=== PATIENT | female | born 1980 | race Caucasian/White ===

== ENCOUNTER 2021-08-12 10:12 | Emergency (ER) | payer OTHER ==
[2021-08-12 10:20] VITALS: TEMP 97.8; BMI 28.3
[2021-08-12 12:14] LABS: BASO % 0.6 % (0-2.0); EOS % 2.1 % (0-4.5); HEMOGLOBIN 13.8 GM/dL (10.7-15.3); LYMPH % 22.7 % (8-40); MCH 32.1 pg (25.7-33.7); MCHC 34.4 g/dl (32.0-36.0); MEAN CELL VOLUME 93.3 fl (80-96); MEAN PLT VOLUME 8.7 fl (7.5-11.1); MONO % 4.7 % (3.8-10.2); NEUT % 69.9 % (42.8-82.8); PLATELET COUNT 273 10^3/uL (134-434); RBC 4.29 M/mm3 (3.60-5.2); RDW 12.7 % (11.6-15.6); WHITE BLOOD COUNT 10.5 K/mm3 (4.0-10.0)
[2021-08-12 12:32] LABS: EPI CELLS >36 /uL (0-25.1); HYALINE CASTS 4 /uL (0-3.1); PH,URINE 6.5 (5.0-8.0); URINE APPEARANCE CLEAR; URINE BACTERIA 2776 /uL (0-1359); URINE BILIRUBIN NEGATIVE (NEGATIVE); URINE COLOR YELLOW; URINE GLUCOSE (UA) NEGATIVE (NEGATIVE); URINE KETONE NEGATIVE (NEGATIVE); URINE LEUK ESTERASE TRACE (NEGATIVE); URINE NITRITE NEGATIVE (NEGATIVE); URINE PROTEIN NEGATIVE (NEGATIVE); URINE RBC 11 /uL (0-23.9); URINE UROBILINOGEN 0.2 mg/dL (0.2-1.0); URINE WBC 51 /uL (0-25.8)
[2021-08-12 13:27] LABS: ALBUMIN 3.8 g/dl (3.4-5.0); BILIRUBIN,TOTAL 0.4 mg/dL (0.2-1); BLOOD UREA NITROGEN 11.6 mg/dL (7-18); CALCIUM 8.9 mg/dL (8.5-10.1); CREATININE 0.7 mg/dL (0.55-1.3); TOT PROT 7.6 g/dl (6.4-8.2)
[2021-08-12 14:16] LABS: PH,URINE 6.5 (5.0-8.0); URINE APPEARANCE CLEAR; URINE BILIRUBIN NEGATIVE (NEGATIVE); URINE COLOR YELLOW; URINE GLUCOSE (UA) NEGATIVE (NEGATIVE); URINE KETONE 1+ (NEGATIVE); URINE LEUK ESTERASE NEGATIVE (NEGATIVE); URINE NITRITE NEGATIVE (NEGATIVE); URINE PROTEIN NEGATIVE (NEGATIVE); URINE UROBILINOGEN 0.2 mg/dL (0.2-1.0)
[2021-08-12 17:01] VITALS: BP 118/78; PULSE 87
== END 2021-08-12 17:01 | disposition home or self-care (01) ==
LOC: JER 10:12
DX: O26.891 Other specified pregnancy related conditions, first trimester (principal); R10.9 Unspecified abdominal pain; Z3A.01 Less than 8 weeks gestation of pregnancy
CPT/HCPCS: 36415; 76801-TC; 80053; 81003; 84702; 85025; 86850; 86900; 86901; 87086; 99284-25

== ENCOUNTER 2022-02-26 17:12 | Emergency (ER) | payer OTHER ==
[2022-02-26 17:26] VITALS: BMI 29.5
[2022-02-26 18:52] LABS: URINE APPEARANCE CLEAR; URINE BILIRUBIN NEGATIVE (NEGATIVE); URINE COLOR YELLOW; URINE GLUCOSE (UA) NEGATIVE (NEGATIVE); URINE KETONE TRACE (NEGATIVE); URINE LEUK ESTERASE NEGATIVE (NEGATIVE); URINE NITRITE NEGATIVE (NEGATIVE); URINE PROTEIN NEGATIVE (NEGATIVE); URINE UROBILINOGEN 0.2 mg/dL (0.2-1.0)
[2022-02-26 19:18] LABS: CALCIUM 8.9 mg/dL (8.5-10.1)
[2022-02-26 19:19] LABS: ALBUMIN 2.7 g/dl (3.4-5.0); BLOOD UREA NITROGEN 8.5 mg/dL (7-18)
[2022-02-26 19:22] LABS: CREATININE 0.5 mg/dL (0.55-1.3)
[2022-02-26 19:24] LABS: BILIRUBIN,TOTAL 0.3 mg/dL (0.2-1); TOT PROT 6.1 g/dl (6.4-8.2)
[2022-02-26 19:29] LABS: BASO % 0.4 % (0-2.0); EOS % 3.2 % (0-4.5); HEMATOCRIT 35.7 % (32.4-45.2); HEMOGLOBIN 11.9 GM/dL (10.7-15.3); LYMPH % 15.7 % (8-40); MCH 31.3 pg (25.7-33.7); MCHC 33.3 g/dl (32.0-36.0); MEAN PLT VOLUME 8.2 fl (7.5-11.1); MONO % 5.8 % (3.8-10.2); NEUT % 74.9 % (42.8-82.8); PLATELET COUNT 263 10^3/uL (134-434); RDW 14.3 % (11.6-15.6)
[2022-02-26] MEDS ORDERED: ACETAMINOPHEN 1000 MG/100 ML BAG IVPB ONE (19:42)
[2022-02-26] MEDS ORDERED: SODIUM CHLORIDE 0.9% 500 ML INFUS.BAG IV ONE (19:42)
[2022-02-26] MEDS ORDERED: METOCLOPRAMIDE HCL INJECTION 10 MG/2 ML VIAL IVPUSH ONE (19:43)
[2022-02-26] MEDS ORDERED: METOCLOPRAMIDE HCL INJECTION 10 MG/2 ML VIAL ONE (19:57)
[2022-02-26] MEDS ORDERED: ACETAMINOPHEN INJECTION 100 ML IVPB ONE (19:57)
[2022-02-26 23:12] VITALS: BP 104/67; PULSE 83; TEMP 98
== END 2022-02-26 23:45 | disposition home or self-care (01) ==
LOC: JER 17:12
PROC: 3E033GC Introduction of Other Therapeutic Substance into Peripheral Vein, Percutaneous Approach (ICD-10-PCS; principal; 2022-02-26)
DX: O26.893 Other specified pregnancy related conditions, third trimester (principal); R51.9 Headache, unspecified; Z3A.37 37 weeks gestation of pregnancy
CPT/HCPCS: 36415; 80053; 81003; 85025; 87086; 96374; 96375; 99284-25

== ENCOUNTER 2022-03-15 06:35 | Inpatient (IN) | payer OTHER ==
[2022-03-15] MEDS ORDERED: CITRIC ACID/SODIUM CITRATE 30 ML UNIT-DOSE CUP PO ONE (06:48)
[2022-03-15] MEDS: ELECTROLYTE-148 SOLN 1,000 ML IV SCH ×3 (07:00→18:45)
[2022-03-15 08:04] VITALS: BMI 29.2
[2022-03-15] MEDS ORDERED: morphine SULFATE/PF 1 MG/2 ML (2cc Syringe - QUVA) ONE (08:05)
[2022-03-15] MEDS ORDERED: morphine SULFATE/PF 1 MG/2 ML (2cc Syringe - QUVA) EP ONE ×2 (08:24→13:32)
[2022-03-15 08:28] LABS: CALCIUM 8.1 mg/dL (8.5-10.1)
[2022-03-15 08:29] LABS: ALBUMIN 2.5 g/dl (3.4-5.0); BLOOD UREA NITROGEN 8.4 mg/dL (7-18)
[2022-03-15 08:32] LABS: CREATININE 0.5 mg/dL (0.55-1.3)
[2022-03-15 08:34] LABS: BILIRUBIN,TOTAL 0.4 mg/dL (0.2-1); TOT PROT 5.6 g/dl (6.4-8.2)
[2022-03-15] MEDS ORDERED: KETOROLAC TROMETHAMINE 30 MG/1 ML VIAL ONE (09:02)
[2022-03-15] MEDS ORDERED: ONDANSETRON 4 MG/2 ML VIAL ONE (09:02)
[2022-03-15] MEDS ORDERED: PHENYLEPHRINE HCL 10 MG/1 ML SINGLE DOSE VIAL ONE (09:02)
[2022-03-15] MEDS ORDERED: ceFAZolin SODIUM 1 GM VIAL ONE (09:02)
[2022-03-15] MEDS ORDERED: OXYTOCIN 10 UNITS/ML VIAL ONE ×2 (09:05→12:24)
[2022-03-15] MEDS ORDERED: BENZOCAINE 28 GM HEMORRHOIDAL OINTMENT TP PRN ×2 (09:30→13:32)
[2022-03-15] MEDS ORDERED: WITCH HAZEL 50% (TUCKS) 40 PAD/JAR PAD TP PRN ×2 (09:30→13:32)
[2022-03-15] MEDS ORDERED: IBUPROFEN 800 MG/8 ML IJ IVPB PRN ×2 (09:30→13:32)
[2022-03-15] MEDS ORDERED: ACETAMINOPHEN 325 MG TABLET (FP) PO PRN ×2 (09:30→13:32)
[2022-03-15] MEDS ORDERED: OXYTOCIN 20 UNITS in 0.9% NS 20 UNIT/1,000 ML INFUS.BAG IV SCH ×2 (09:30→13:32)
[2022-03-15] MEDS ORDERED: METHYLERGONOVINE MALEATE 0.2 MG/1 ML AMP IM PRN ×2 (09:30→13:32)
[2022-03-15] MEDS ORDERED: IBUPROFEN 600 MG TABLET (FP) PO PRN ×2 (09:30→13:32)
[2022-03-15] MEDS ORDERED: SIMETHICONE 80 MG TAB.CHEW (FP) PO PRN ×2 (09:30→13:32)
[2022-03-15] MEDS ORDERED: FERROUS SO4 325 MG TABLET (FP) PO SCH (10:00)
[2022-03-15] MEDS ORDERED: PRENATAL VITAMINS W/ FOLIC ACID TABLET (FP) PO SCH (10:00)
[2022-03-15] MEDS ORDERED: OXYTOCIN 20 UNITS in 0.9% NS 20 UNIT/1,000 ML INFUS.BAG IV ONE (10:58)
[2022-03-15] MEDS ORDERED: ROCURONIUM BROMIDE 50 MG/5 ML SYRINGE ONE (11:06)
[2022-03-15] MEDS ORDERED: PROPOFOL 20 ML ONE (11:06)
[2022-03-15] MEDS ORDERED: MIDAZOLAM HCL 2 MG/2 ML SINGLE DOSE VIAL ONE ×3 (11:06→15:36)
[2022-03-15] MEDS ORDERED: LIDOCAINE HCL/PF 2% SDV 5ML VIAL ONE (11:08)
[2022-03-15 11:32] LABS: HEMATOCRIT 27.5 % (32.4-45.2); HEMOGLOBIN 9.3 GM/dL (10.7-15.3); MCH 32.6 pg (25.7-33.7); MCHC 33.9 g/dl (32.0-36.0); MEAN CELL VOLUME 96.1 fl (80-96); MEAN PLT VOLUME 8.3 fl (7.5-11.1); PLATELET COUNT 226 10^3/uL (134-434); RBC 2.87 M/mm3 (3.60-5.2); RDW 14.6 % (11.6-15.6); WHITE BLOOD COUNT 9.9 K/mm3 (4.0-10.0)
[2022-03-15] MEDS ORDERED: ceFAZolin SODIUM 1 GM VIAL IVPB ONE (11:40)
[2022-03-15] MEDS ORDERED: MISOPROSTOL 200 MCG TABLET ONE ×2 (11:45→12:03)
[2022-03-15] MEDS ORDERED: METHYLERGONOVINE MALEATE 0.2 MG/1 ML AMP IM ONE (12:03)
[2022-03-15] MEDS ORDERED: NEOSTIGMINE METHYLSULFATE 0.5 MG/ML - 10 ML MDV ONE ×2 (12:23)
[2022-03-15] MEDS ORDERED: DEXAMETHASONE SOD PHOSPHATE 4 MG/1 ML VIAL ONE (12:24)
[2022-03-15] MEDS ORDERED: ONDANSETRON 4 MG/2 ML VIAL IVPUSH PRN ×5 (13:05→18:08)
[2022-03-15] MEDS ORDERED: ACETAMINOPHEN 1000 MG/100 ML BAG IVPB ONE ×2 (13:09→13:32)
[2022-03-15] MEDS ORDERED: ACETAMINOPHEN INJECTION 100 ML IVPB ONE (13:39)
[2022-03-15] MEDS ORDERED: FENTANYL CITRATE/PF 50 MCG/ML VIAL ONE ×3 (15:37→17:41)
[2022-03-15] MEDS ORDERED: LACTATED RINGERS SOLUTION 1,000 ML IV SCH (18:15)
[2022-03-15] MEDS ORDERED: HYDROmorphone *PCA* 10MG/50ML DISP.SYRIN ONE (18:36)
[2022-03-15] MEDS: HYDROmorphone *PCA* 10MG/50ML DISP.SYRIN PCA SCH ×2 (18:41→18:45)
[2022-03-15] MEDS ORDERED: oxyCODONE HCL 5 MG TABLET PO PRN ×2 (21:30)
[2022-03-15] MEDS ORDERED: HYDROCORTISONE SOD SUCCINATE 100 MG/2 ML VIAL IVPB ONE (21:50)
[2022-03-15] MEDS: FERROUS SO4 325 MG TABLET (FP) PO SCH (22:41)
[2022-03-15 23:01] LABS: URINE COLOR ORANGE
[2022-03-15 23:02] LABS: PH,URINE 5.5 (5.0-8.0); URINE APPEARANCE CLEAR; URINE GLUCOSE (UA) NEGATIVE (NEGATIVE); URINE NITRITE NEGATIVE (NEGATIVE)
[2022-03-15 23:05] LABS: URINE BILIRUBIN 1+ (NEGATIVE); URINE KETONE 1+ (NEGATIVE); URINE LEUK ESTERASE TRACE (NEGATIVE); URINE PROTEIN 2+ (NEGATIVE)
[2022-03-16] MEDS: ELECTROLYTE-148 SOLN 1,000 ML IV SCH ×2 (03:42→11:49)
[2022-03-16 04:13] LABS: BASO % 0.2 % (0-2.0); EOS % 0.1 % (0-4.5); HEMATOCRIT 23.1 % (32.4-45.2); HEMOGLOBIN 7.8 GM/dL (10.7-15.3); LYMPH % 13.8 % (8-40); MCH 30.9 pg (25.7-33.7); MCHC 33.7 g/dl (32.0-36.0); MEAN CELL VOLUME 91.6 fl (80-96); MEAN PLT VOLUME 7.6 fl (7.5-11.1); MONO % 7.7 % (3.8-10.2); NEUT % 78.2 % (42.8-82.8); PLATELET COUNT 144 10^3/uL (134-434); RBC 2.52 M/mm3 (3.60-5.2); RDW 15.2 % (11.6-15.6); WHITE BLOOD COUNT 16.2 K/mm3 (4.0-10.0)
[2022-03-16 04:34] LABS: CALCIUM 7.6 mg/dL (8.5-10.1)
[2022-03-16 04:35] LABS: BLOOD UREA NITROGEN 8.8 mg/dL (7-18)
[2022-03-16 04:38] LABS: CREATININE 0.5 mg/dL (0.55-1.3)
[2022-03-16 04:40] LABS: BILIRUBIN,TOTAL 0.4 mg/dL (0.2-1); TOT PROT 4.1 g/dl (6.4-8.2)
[2022-03-16 05:04] LABS: ARTERIAL BLD GAS O2 SATURATION 98.2 % (95-98); ARTERIAL BLOOD GAS BASE EXCESS -2.6 mmol/L (-2-2); ARTERIAL BLOOD GAS PO2 112.9 mmHg (80-100)
[2022-03-16 05:11] LABS: ALLENS TEST POSITIVE
[2022-03-16 05:12] LABS: ALBUMIN 1.7 g/dl (3.4-5.0)
[2022-03-16 06:06] LABS: ACTIVATED PTT 24.8 SECONDS (25.2-36.5); INR 1.01 (0.83-1.09)
[2022-03-16] MEDS ORDERED: FUROSEMIDE 40 MG/4 ML INJECTABLE VIAL IVPUSH ONE ×2 (07:00→08:30)
[2022-03-16] MEDS ORDERED: BISACODYL 10 MG SUPP.RECT RC PRN ×3 (09:30→18:55)
[2022-03-16] MEDS ORDERED: PRENATAL VITAMINS W/ FOLIC ACID TABLET (FP) PO SCH (10:00)
[2022-03-16] MEDS ORDERED: MUPIROCIN 2% TOPICAL OINTMENT FOR DECOLONIZATION NS SCH ×2 (10:00→22:00)
[2022-03-16 10:02] LABS: MAGNESIUM 1.9 mg/dL (1.8-2.4)
[2022-03-16] MEDS: FERROUS SO4 325 MG TABLET (FP) PO SCH ×2 (10:04→17:54)
[2022-03-16 10:06] LABS: PHOSPHOROUS 3.2 mg/dL (2.5-4.9)
[2022-03-16 10:15] LABS: N-TERMINAL BNP 36.1 pg/ml (5-125)
[2022-03-16 10:21] LABS: BASO % 0.1 % (0-2.0); HEMATOCRIT 21.3 % (32.4-45.2); HEMOGLOBIN 7.3 GM/dL (10.7-15.3); LYMPH % 6.7 % (8-40); MCH 31.1 pg (25.7-33.7); MCHC 34.4 g/dl (32.0-36.0); MEAN CELL VOLUME 90.4 fl (80-96); MEAN PLT VOLUME 7.6 fl (7.5-11.1); MONO % 4.8 % (3.8-10.2); NEUT % 88.4 % (42.8-82.8); PLATELET COUNT 137 10^3/uL (134-434); RBC 2.35 M/mm3 (3.60-5.2); WHITE BLOOD COUNT 17.6 K/mm3 (4.0-10.0)
[2022-03-16] MEDS ORDERED: METHYLERGONOVINE MALEATE 0.2 MG/1 ML AMP IM PRN (18:55)
[2022-03-16] MEDS ORDERED: WITCH HAZEL 50% (TUCKS) 40 PAD/JAR PAD TP PRN (18:55)
[2022-03-16] MEDS ORDERED: BENZOCAINE 28 GM HEMORRHOIDAL OINTMENT TP PRN (18:55)
[2022-03-16] MEDS ORDERED: HYDROmorphone *PCA* 10MG/50ML DISP.SYRIN PCA SCH (18:55)
[2022-03-16] MEDS: oxyCODONE HCL 5 MG TABLET PO PRN (21:21)
[2022-03-16] MEDS: SIMETHICONE 80 MG TAB.CHEW (FP) PO PRN (21:21)
[2022-03-16] MEDS ORDERED: CHLORHEXIDINE GLUCONATE 4% CLEANSER FOR DECOLONIZATION TP SCH (22:00)
[2022-03-17] MEDS: SIMETHICONE 80 MG TAB.CHEW (FP) PO PRN ×2 (03:04→09:23)
[2022-03-17] MEDS: FERROUS SO4 325 MG TABLET (FP) PO SCH ×2 (09:22→17:37)
[2022-03-17] MEDS: oxyCODONE HCL 5 MG TABLET PO PRN ×3 (09:23→22:13)
[2022-03-17] MEDS: PRENATAL VITAMINS W/ FOLIC ACID TABLET (FP) PO SCH (09:23)
[2022-03-17] MEDS ORDERED: DIPHTH,PERTUSS(ACELL),TET 0.5 ML DISP.SYRIN IM ONE (10:00)
[2022-03-17 10:11] LABS: HEMATOCRIT 19.6 % (32.4-45.2); MCH 31.3 pg (25.7-33.7); MCHC 33.9 g/dl (32.0-36.0); MEAN CELL VOLUME 92.3 fl (80-96); MEAN PLT VOLUME 7.6 fl (7.5-11.1); PLATELET COUNT 149 10^3/uL (134-434); RBC 2.13 M/mm3 (3.60-5.2); RDW 15.3 % (11.6-15.6)
[2022-03-17 10:17] LABS: HEMOGLOBIN 6.6 GM/dL (10.7-15.3)
[2022-03-17 10:30] LABS: BLOOD UREA NITROGEN 9.5 mg/dL (7-18); CALCIUM 7.4 mg/dL (8.5-10.1)
[2022-03-17 10:34] LABS: CREATININE 0.5 mg/dL (0.55-1.3)
[2022-03-17 14:41] LABS: BASO % 0.2 % (0-2.0); EOS % 1.2 % (0-4.5); LYMPH % 10.3 % (8-40); MCH 30.7 pg (25.7-33.7); MCHC 33.4 g/dl (32.0-36.0); MEAN PLT VOLUME 7.8 fl (7.5-11.1); NEUT % 81.3 % (42.8-82.8); PLATELET COUNT 150 10^3/uL (134-434); RBC 2.07 M/mm3 (3.60-5.2); RDW 15.5 % (11.6-15.6); WHITE BLOOD COUNT 16.7 K/mm3 (4.0-10.0)
[2022-03-17 14:46] LABS: HEMOGLOBIN 6.4 GM/dL (10.7-15.3)
[2022-03-17] MEDS ORDERED: IRON SUCROSE INJECTION 200 MG in SODIUM CHLORIDE 90 ML IVPB ONE (16:15)
[2022-03-17] MEDS: IBUPROFEN 600 MG TABLET (FP) PO PRN (21:19)
[2022-03-18] MEDS: oxyCODONE HCL 5 MG TABLET PO PRN ×4 (06:02→23:07)
[2022-03-18 07:27] LABS: HEMATOCRIT 24.4 % (32.4-45.2); HEMOGLOBIN 8.4 GM/dL (10.7-15.3); MCH 31.8 pg (25.7-33.7); MCHC 34.4 g/dl (32.0-36.0); MEAN CELL VOLUME 92.4 fl (80-96); MEAN PLT VOLUME 7.9 fl (7.5-11.1); PLATELET COUNT 183 10^3/uL (134-434); RBC 2.64 M/mm3 (3.60-5.2); RDW 14.9 % (11.6-15.6); WHITE BLOOD COUNT 16.9 K/mm3 (4.0-10.0)
[2022-03-18] MEDS: FERROUS SO4 325 MG TABLET (FP) PO SCH ×2 (08:06→18:42)
[2022-03-18] MEDS: PRENATAL VITAMINS W/ FOLIC ACID TABLET (FP) PO SCH (10:02)
[2022-03-18 10:42] LABS: ANISOCYTOSIS 2+; MACROCYTOSIS 0; OVALOCYTE 2+
[2022-03-18] MEDS: SIMETHICONE 80 MG TAB.CHEW (FP) PO PRN ×2 (18:42→23:07)
[2022-03-18] MEDS: HYDROmorphone *PCA* 10MG/50ML DISP.SYRIN PCA SCH (19:46)
[2022-03-18] MEDS: IBUPROFEN 600 MG TABLET (FP) PO PRN (21:57)
[2022-03-19] MEDS: oxyCODONE HCL 5 MG TABLET PO PRN ×2 (06:09→15:20)
[2022-03-19] MEDS: SIMETHICONE 80 MG TAB.CHEW (FP) PO PRN ×3 (06:09→23:57)
[2022-03-19] MEDS: FERROUS SO4 325 MG TABLET (FP) PO SCH ×2 (07:22→16:49)
[2022-03-19] MEDS: IBUPROFEN 600 MG TABLET (FP) PO PRN ×3 (07:22→23:57)
[2022-03-19 08:30] LABS: HEMATOCRIT 29.3 % (32.4-45.2); MCH 31.6 pg (25.7-33.7); MEAN CELL VOLUME 92.9 fl (80-96); MEAN PLT VOLUME 7.7 fl (7.5-11.1); PLATELET COUNT 240 10^3/uL (134-434); RBC 3.16 M/mm3 (3.60-5.2); RDW 14.6 % (11.6-15.6); WHITE BLOOD COUNT 14.7 K/mm3 (4.0-10.0)
[2022-03-19] MEDS: PRENATAL VITAMINS W/ FOLIC ACID TABLET (FP) PO SCH (09:57)
[2022-03-19 12:12] LABS: ANISOCYTOSIS 2+; MACROCYTOSIS 0; OVALOCYTE 2+
[2022-03-19] MEDS ORDERED: diphenhydrAMINE HCL 25 MG CAPSULE (FP) PO ONE (14:45)
[2022-03-20] MEDS: SIMETHICONE 80 MG TAB.CHEW (FP) PO PRN ×2 (06:18→10:02)
[2022-03-20] MEDS: IBUPROFEN 600 MG TABLET (FP) PO PRN (06:19)
[2022-03-20 07:27] LABS: HEMATOCRIT 27.6 % (32.4-45.2); HEMOGLOBIN 9.5 GM/dL (10.7-15.3); MCH 31.7 pg (25.7-33.7); MCHC 34.4 g/dl (32.0-36.0); MEAN CELL VOLUME 92.4 fl (80-96); MEAN PLT VOLUME 7.6 fl (7.5-11.1); PLATELET COUNT 273 10^3/uL (134-434); RBC 2.99 M/mm3 (3.60-5.2); RDW 14.8 % (11.6-15.6)
[2022-03-20] MEDS ORDERED: ACETAMINOPHEN 325 MG TABLET (FP) PO PRN (08:26)
[2022-03-20] MEDS: FERROUS SO4 325 MG TABLET (FP) PO SCH (08:35)
[2022-03-20] MEDS: PRENATAL VITAMINS W/ FOLIC ACID TABLET (FP) PO SCH (10:02)
[2022-03-20 10:14] VITALS: BP 96/64; PULSE 104; TEMP 98.8
[2022-03-20 10:20] LABS: ANISOCYTOSIS 0; MACROCYTOSIS 0; PLATELET ESTIMATE NORMAL
== END 2022-03-20 15:15 | disposition home or self-care (01) | DRG 540 ==
LOC: JLDR 06:35 → J3W 19:40 → JICU 03-16 06:06 → J3W 03-16 18:25
PROVIDERS: ADMIT Obstetrics & Gynecology; ATTEND Obstetrics & Gynecology
PROC: 0UL70DZ Occlusion of Bilateral Fallopian Tubes with Intraluminal Device, Open Approach (ICD-10-PCS; 2022-03-15)
PROC: 04LF3ZU Occlusion of Left Uterine Artery, Percutaneous Approach (ICD-10-PCS; 2022-03-15)
PROC: 04LE3ZT Occlusion of Right Uterine Artery, Percutaneous Approach (ICD-10-PCS; 2022-03-15)
PROC: 30233N1 Transfusion of Nonautologous Red Blood Cells into Peripheral Vein, Percutaneous Approach (ICD-10-PCS; 2022-03-15)
PROC: 10D00Z1 Extraction of Products of Conception, Low, Open Approach (ICD-10-PCS; principal; 2022-03-15 11:00)
PROC: 0UQ90ZZ Repair Uterus, Open Approach (ICD-10-PCS; 2022-03-16)
DX: O34.219 Maternal care for unspecified type scar from previous cesarean delivery (principal); K66.1 Hemoperitoneum; O72.1 Other immediate postpartum hemorrhage; T80.89XA Other complications following infusion, transfusion and therapeutic injection, initial encounter; I95.81 Postprocedural hypotension; D72.828 Other elevated white blood cell count; E87.3 Alkalosis; E87.70 Fluid overload, unspecified; D64.9 Anemia, unspecified; J95.89 Other postprocedural complications and disorders of respiratory system, not elsewhere classified; J98.11 Atelectasis; Y84.8 Other medical procedures as the cause of abnormal reaction of the patient, or of later complication, without mention of misadventure at the time of the procedure; Z3A.39 39 weeks gestation of pregnancy; Z37.0 Single live birth; Z30.2 Encounter for sterilization
CPT/HCPCS: 36415; 36430; 36600; 37244; 71045-TC-FY; 71046-TC-FY; 71275-TC; 80048; 80053; 81003; 82728; 82803; 83615; 83735; 83880; 84100; 85025; 85027; 85610; 85730; 86078; 86850; 86900; 86901; 86922; 88302-TC; 88307-TC; 93005; 93010; 93306-TC; 93970-TC; 94010; 94760; C9803-CS; P9058; Q9967; U0003; U0005